=== PATIENT | female | born 1960 | race Caucasian/White ===

== ENCOUNTER 2023-08-01 12:56 | Outpatient (CLI) | payer OTHER ==
[2023-08-01] MEDS ORDERED: Magnevist 469MG/ML 20 ML VIAL ONE ×2 (13:23)
== END 2023-08-01 12:57 | disposition home or self-care (01) ==
LOC: BICMRI 12:56
PROVIDERS: ATTEND Orthopaedic Surgery Orthopaedic Trauma
DX: M86.9 Osteomyelitis, unspecified (principal); S96.812A Strain of other specified muscles and tendons at ankle and foot level, left foot, initial encounter; S92.012A Displaced fracture of body of left calcaneus, initial encounter for closed fracture; L97.429 Non-pressure chronic ulcer of left heel and midfoot with unspecified severity; M87.9 Osteonecrosis, unspecified; M79.89 Other specified soft tissue disorders; Z98.890 Other specified postprocedural states
CPT/HCPCS: 82565